=== PATIENT | female | born 2000 | race Two or more races ===

== ENCOUNTER 2018-04-23 01:46 | Emergency (ER) | payer SELFPAY ==
--- NOTE | 2018-04-23 01:59 | ED ---
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 Patient denies emesis. She is alert and oriented and asking for water. - History Of Current Complaint Stated Complaint: ETOH-PER ES Time Seen by Provider: 04/23/18 01:48 Hx Obtained From: Patient Associated Signs And Symptoms: Negative - Allergies/Home Medications Home Medications: Home Medications Unobtainable 04/23/18 [History Confirmed 04/23/18] PMH/Surg Hx/FS Hx/Imm Hx History: Denies: Hx Dialysis Sensory History: Denies: Hx Deafness - Family History Known Family History: Positive: Non-Contributory - Social History Occupation: Student Alcohol Use: Occasionally Review of Systems Negative: Fever Negative: Vomiting All Other Systems Reviewed And Are Negative: Yes Physical Exam - Summary Physical Exam Summary: VITAL SIGNS: Reviewed. GENERAL: Patient is a well-developed and nourished female who is lying comfortable in the stretcher. Patient is not in any acute respiratory distress. HEAD AND FACE: No signs of trauma. No ecchymosis, hematomas or skull depressions. No sinus tenderness. EYES: PERRLA, EOMI x 2, No injected conjunctiva, no nystagmus. EARS: Hearing grossly intact. Ear canals and tympanic membranes are within normal limits. MOUTH: Oropharynx within normal limits. NECK: Supple, trachea is midline, no adenopathy, no JVD, no carotid bruit, no c- spine tenderness, neck with full ROM. CHEST: Symmetric, no tenderness at palpation LUNGS: Clear to auscultation bilaterally. No wheezing or crackles. CVS: Regular rate and rhythm, S1 and S2 present, no murmurs or gallops appreciated. ABDOMEN: Soft, non-tender. No signs of distention. No rebound no guarding, and no masses palpated. Bowel sounds are normal. EXTREMITIES: FROM in all major joints, no edema, no cyanosis or clubbing. NEURO: Alert and oriented x 3. No acute neurological deficits. Speech is normal and follows commands, somewhat slowly. 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 Patient denies emesis. She is alert and oriented and asking for water. Patient will be discharged with follow up from [facility] physician referral. The patient is agreeable with this plan. - Diagnoses Provider Diagnoses: Alcohol intoxication Discharge - Sign-Out/Discharge Documenting (check all that apply): Patient Departure - discharge Patient Received Moderate/Deep Sedation with Procedure: No - Discharge Plan Condition: Stable Disposition: HOME Patient Education Materials: Alcohol Intoxication (ED) Referrals: [facility] PHYSICIAN REFERRAL [Outside] - 2 Days Additional Instructions: RETURN TO THE EMERGENCY DEPARTMENT FOR CHANGING OR WORSENING SYMPTOMS. FOLLOW UP WITH [facility] PHYSICIAN REFERRAL IN 1-2 DAYS. - Attestation Statements Document Initiated by Scribe: Yes Documenting Scribe: Christiano Preciado Provider For Whom Scribe is Documenting (Include Credential): Triston Rodriguez MD Scribe Attestation: Christiano Culver, scribed for Triston Rodriguez MD on 04/23/18 at 0558. Status of Scribe Document: Ready
[2018-04-23 06:05] VITALS: BP 126/56
== END 2018-04-23 06:04 | disposition home or self-care (01) ==
LOC: ED 01:46
DX: F10.129 Alcohol abuse with intoxication, unspecified (principal)
CPT/HCPCS: 99283